=== PATIENT | male | born 1945 | race Caucasian/White ===

== ENCOUNTER 2016-03-26 05:24 | Day surgery (SDC) | payer OTHER ==
[~2016-03-26] VITALS: Ht 172.7 cm; Wt 77.1 kg
[~2016-03-26 05:24] MED LIST: ADULT LOW DOSE81 M1 PO; ALEVE220 M2 PO; AMARYL1 MG PO; BENZONATATE200 MG PO; CIPRO500 MG PO; FLOMAX0.4 MG PO; FLONASE16 G1 BOTH NARES; GLUCOPHAGE XR750 MG PO; LEVAQUIN500 MG PO; LEVOFLOXACIN500 MG PO; NORCO 5/3251 TABLET PO; OXYCONTIN10 MG PO; PERCOCET 5/31 TABLET PO; POTASSIUM CITR10 MEQ PO; PRAVACHOL40 MG PO; PRINIVIL5 MG PO; TESSALON200 MG PO; TORADOL10 MG PO; VITAMIN D32000 UNI1 PO; ZOFRAN ODT4 MG PO; ZOFRAN4 MG PO; ZZZQUIL50 MG/30 M PO
[2016-03-26 06:24] VITALS: BP 146/86
[2016-03-26 06:33] LABS: POINT-OF-CARE METER ID UU14174212
[2016-03-26] MEDS ORDERED: PERCOCET 5/31 TABLET PO (09:20)
[2016-03-26] MEDS ORDERED: COLACE100 MG PO (09:20)
[2016-03-26 11:16] VITALS: BP 130/62
[2016-03-26 11:50] VITALS: BP 117/71
[2016-03-26 15:44] VITALS: BP 126/78
[2016-03-26 15:53] VITALS: BP 135/77
== END 2016-03-26 15:57 | disposition home or self-care (01) ==
LOC: SDC 05:24
PROVIDERS: Surgery
PROC: 0YQ60ZZ Repair Left Inguinal Region, Open Approach (ICD-10-PCS; principal; 2016-03-26)
DX: K40.90 Unilateral inguinal hernia, without obstruction or gangrene, not specified as recurrent (principal); I10 Essential (primary) hypertension; E11.9 Type 2 diabetes mellitus without complications; N40.0 Benign prostatic hyperplasia without lower urinary tract symptoms; I25.10 Atherosclerotic heart disease of native coronary artery without angina pectoris; E78.5 Hyperlipidemia, unspecified; K76.0 Fatty (change of) liver, not elsewhere classified
CPT/HCPCS: 82948; C1781; J0131; J1100; J1170; J2250; J2405; J2710; J3010

== ENCOUNTER → 2017-05-06 | Outpatient (CLI) | payer MEDICARE, OTHER ==
[~2017-05-06] MED LIST changes: +COLACE100 MG PO
== END | disposition home or self-care (01) ==
LOC: CDC 11:31
DX: Z01.810 Encounter for preprocedural cardiovascular examination (principal); K40.90 Unilateral inguinal hernia, without obstruction or gangrene, not specified as recurrent; I45.2 Bifascicular block
CPT/HCPCS: 93000

== ENCOUNTER 2017-05-17 07:20 | Day surgery (SDC) | payer OTHER ==
[~2017-05-17] VITALS: Ht 170.2 cm; Wt 78.2 kg
[2017-05-17 08:37] VITALS: BP 128/79
[2017-05-17 12:50] VITALS: BP 144/67
[2017-05-17 13:50] VITALS: BP 154/73
== END 2017-05-17 16:13 | disposition home or self-care (01) ==
LOC: SDC
PROVIDERS: Surgery
PROC: 0YU64JZ Supplement Left Inguinal Region with Synthetic Substitute, Percutaneous Endoscopic Approach (ICD-10-PCS; principal; 2017-05-17)
DX: K40.91 Unilateral inguinal hernia, without obstruction or gangrene, recurrent (principal); I10 Essential (primary) hypertension; E11.9 Type 2 diabetes mellitus without complications; F41.8 Other specified anxiety disorders; M47.12 Other spondylosis with myelopathy, cervical region; I25.84 Coronary atherosclerosis due to calcified coronary lesion; E78.00 Pure hypercholesterolemia, unspecified; E78.1 Pure hyperglyceridemia; M47.16 Other spondylosis with myelopathy, lumbar region; I45.2 Bifascicular block; Z85.038 Personal history of other malignant neoplasm of large intestine; Z79.82 Long term (current) use of aspirin; Z79.84 Long term (current) use of oral hypoglycemic drugs
CPT/HCPCS: 82948; C1727; C1781; J0690; J1170; J2250; J2405; J2710; S0020